=== PATIENT | male | born 1955 | race American Indian/Alaskan Native ===

== ENCOUNTER 2019-05-29 13:51 | Emergency (ER) | payer OTHER, MEDICARE ==
[2019-05-29 15:00] VITALS: BP 154/87
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
[2019-05-29] MEDS ORDERED: TRIPLE ANTIBIOTIC TP ONE (16:40)
== END 2019-05-29 17:27 | disposition home or self-care (01) ==
LOC: ED 13:51
DX: S46.811A Strain of other muscles, fascia and tendons at shoulder and upper arm level, right arm, initial encounter (principal); I10 Essential (primary) hypertension; J45.909 Unspecified asthma, uncomplicated; Z79.899 Other long term (current) drug therapy; V49.49XA Driver injured in collision with other motor vehicles in traffic accident, initial encounter; Y93.89 Activity, other specified; Y92.410 Unspecified street and highway as the place of occurrence of the external cause; Y99.8 Other external cause status
CPT/HCPCS: A6250